=== PATIENT | male | born 2000 | race Hispanic/Latino ===

== ENCOUNTER 2022-08-19 06:12 | Emergency (ER) | payer OTHER ==
[~2022-08-19] VITALS: Ht 167.6 cm; Wt 82.8 kg
[2022-08-19] MEDS ORDERED: IBUPROFEN 600MG TAB PO ONE (06:50)
[2022-08-19 08:44] VITALS: BP 116/62
== END 2022-08-19 08:59 | disposition home or self-care (01) ==
LOC: M ED 06:12
DX: U07.1 COVID-19 (principal); I44.0 Atrioventricular block, first degree; F17.200 Nicotine dependence, unspecified, uncomplicated